=== PATIENT | male | born 1995 | race Caucasian/White ===

== ENCOUNTER 2020-03-31 09:14 | Emergency (ER) | payer SELFPAY ==
[~2020-03-31] VITALS: Ht 185.4 cm; Wt 61.0 kg
[2020-03-31 09:22] VITALS: BP 95/51
[2020-03-31] MEDS ORDERED: DIPH,PERTUSS(ACELL),TET VAC/PF 0.5 ML IM-VACC ONE ×3 (09:30→09:53)
[2020-03-31] MEDS ORDERED: LIDOCAINE-MPF 1%, 5ML INFIL ONE (09:30)
[2020-03-31] MEDS ORDERED: BUPIVACAINE/PF-EPI 0.25% 1:200K SQ ONE (09:30)
[2020-03-31] MEDS ORDERED: LIDOCAINE-MPF 1%, 5ML ONE (09:46)
[2020-03-31] MEDS ORDERED: BUPIVACAINE 0.25% ONE ×2 (09:47)
[2020-03-31] MEDS ORDERED: NEOSPORIN OINT. PKT 1 PACKET ONE (10:02)
== END 2020-03-31 10:32 | disposition home or self-care (01) ==
LOC: ED 09:39
DX: S61.213A Laceration without foreign body of left middle finger without damage to nail, initial encounter (principal); X58.XXXA Exposure to other specified factors, initial encounter; Y93.89 Activity, other specified; Y92.098 Other place in other non-institutional residence as the place of occurrence of the external cause; Y99.8 Other external cause status
CPT/HCPCS: 12001; 90471; 90715; 99283

== ENCOUNTER 2020-04-13 11:42 | Emergency (ER) | payer SELFPAY ==
[~2020-04-13] VITALS: Ht 185.4 cm; Wt 63.1 kg
[2020-04-13 11:57] VITALS: BP 116/59
--- NOTE | 2020-04-13 12:01 | NUR ---
MD SHEPHERD ASSESSED PT STITCHES. OK TO REMOVE IN TRIAGE.
== END 2020-04-13 12:07 | disposition home or self-care (01) ==
LOC: ED 12:01
DX: S61.213D Laceration without foreign body of left middle finger without damage to nail, subsequent encounter (principal); Z48.02 Encounter for removal of sutures; X58.XXXD Exposure to other specified factors, subsequent encounter
CPT/HCPCS: 99281